=== PATIENT | male | born 1955 | race Caucasian/White ===

== ENCOUNTER → 2023-10-25 14:57 | Outpatient (REF) | payer BC, SELFPAY | LOC: RCS 14:57 | PROVIDERS: ATTENDING PHYSICIAN Internal Medicine Cardiovascular Disease; FAMILY PHYSICIAN Family Medicine | DX: R60.0 Localized edema (principal); R01.1 Cardiac murmur, unspecified; I49.3 Ventricular premature depolarization | CPT/HCPCS: 93306 ==

== ENCOUNTER → 2024-02-08 11:19 | Outpatient (REF) | payer BC, SELFPAY | LOC: HWRAD 11:19 | PROVIDERS: ATTENDING PHYSICIAN Student in an Organized Health Care Education/Training Program | DX: R10.9 Unspecified abdominal pain (principal) | CPT/HCPCS: 74176 ==

== ENCOUNTER 2024-03-11 11:48 | Emergency (ER) | payer BC, SELFPAY ==
[2024-03-11 11:53] VITALS: BP 170/86
--- NOTE | 2024-03-11 12:07 | ED.GENMED ---
ED Provider Triage
<Angie Street PA-C - Last Filed: 03/11/24 19:04>
-
Patient seen by provider in Triage?: Seen in Triage
Attestation: A medical screening examination has been initiated by a qualified medical provider. Based on the assessment performed at this time, it has been determined that an emergent medical condition may exist and the patient has been informed
that further medical evaluation and possible additional diagnostic testing may be needed.
HPI: 68yoM here with L flank pain. Ongoing x 1 month. Worse with driving. States pain is slightly more intense now. Had an outpatient CT 1 month ago which was negative. Had an appt scheduled with urology for tomorrow but cancelled this because he
was coming to the ED. Denies urinary symptoms, fevers, shortness of breath, pleuritic pain, rash.
GENERAL: Alert , in no apparent distress
EYE: No visual abnormalities.
NECK: Trachea midline
ENT: No visible abnormalities.
LUNGS: No acute respiratory distress
NEUROLOGICAL: Alert and oriented
SKIN: Skin intact. No visible changes.
MUSCULOSKELETAL: Moving extremities normally
PSYCH: Normal and appropriate interaction.
This is a medical evaluation conducted in person to initiate diagnostic evaluation and provide initial therapeutics. Please see further documentation by the treating clinician.
Abdominal labs, UA, and repeat CT.
History of Present Illness
<Angie Street PA-C - Last Filed: 03/11/24 19:04>
General
Chief Complaint: Back Pain
Time Seen by Provider: 03/11/24 13:41
<Gabe Stafford PA-C - Last Filed: 03/11/24 14:06>
General
Source: patient
Exam Limitations: none
History of Present Illness
History of Present Illness:
68-year-old male presents with intermittent left back and flank pain over the past month. CT scan was done about a month ago which failed to demonstrate any kidney stones. He denies urinary symptoms. The pain is not made worse with sitting and
driving for prolonged period time. There is no numbness. No bowel or bladder dysfunction. He denies a rash. No fever. No known injury. No other complaints at this time
Past History
<Angie Street PA-C - Last Filed: 03/11/24 19:04>
Past History
ED Past Medical History: NIDDM
Social History
Tobacco: Non-smoker
Living: with family
Phy Exam
<Gabe Stafford PA-C - Last Filed: 03/11/24 14:06>
Physical Exam
Physical Exam:
General: Well-appearing male no acute respiratory distress
HEENT: Normocephalic atraumatic
Heart: Regular rate and rhythm no murmurs
Lungs: Clear no wheeze
Abdomen is soft slightly tender to the left mid abdomen no guarding or rebound normal bowel sounds nondistended
Musculoskeletal exam: Mild reproducible tenderness about the left flank
Skin is warm no rash or lesions
Course
<Angie Street PA-C - Last Filed: 03/11/24 19:04>
Orders/Labs/Results
Orders:
Orders
03/11/24 12:10
CT Abd/pel Without Iv Or Oral Urgent
Comment:
Reason For Exam: L flank pain
03/11/24 12:13
Complete Blood Count/With Diff Urgent
Comprehensive Metabolic Panel Urgent
Lipase Urgent
Urinalysis Reflex To Culture Urgent
Date Specimen was Collected: 03/11/24
Time Specimen was Collected: 11:57
Urine Microscopic Reflex Cult Urgent
Abnormal Lab Results
03/11/24
12:13
WBC 11.0 H 10^3/uL
(4.8-10.8)
RBC 4.45 L 10^6/uL
(4.70-6.10)
Absolute Neuts (auto) 7.7 H 10^3/uL
(1.4-6.5)
Absolute Monos (auto) 0.9 H 10^3/uL
(0.1-0.6)
Lymphocytes % 16.9 L %
(20.5-51.1)
Glucose 226 H mg/dl
(70-99)
Urine Ketones Trace A
(Negative)
Ur Occult Blood Reflex Trace A
(Negative)
Urine RBC 3-6 A /HPF
(0-2)
Urine Bacteria (Reflex) Few A
(Negative)
Urine Glucose 3+ A
(Negative)
03/11/24 12:13
03/11/24 12:13
Vital Signs
Initial and Last Documented VS:
Initial Vital Signs
Temp Pulse Resp BP Pulse Ox
97.9 F 69 17 170/86 99
03/11/24 11:53 03/11/24 11:53 03/11/24 11:53 03/11/24 11:53 03/11/24 11:53
Last Documented Vital Signs
Temp Pulse Resp BP Pulse Ox
97.9 F 69 17 170/86 99
03/11/24 11:53 03/11/24 11:53 03/11/24 11:53 03/11/24 11:53 03/11/24 11:53
Cristinalt;Gabe Stafford PA-C - Last Filed: 03/11/24 14:06>
Orders/Labs/Results
Orders:
Orders
03/11/24 12:10
CT Abd/pel Without Iv Or Oral Urgent
Comment:
Reason For Exam: L flank pain
03/11/24 12:13
Complete Blood Count/With Diff Urgent
Comprehensive Metabolic Panel Urgent
Lipase Urgent
Urinalysis Reflex To Culture Urgent
Date Specimen was Collected: 03/11/24
Time Specimen was Collected: 11:57
Urine Microscopic Reflex Cult Urgent
Abnormal Lab Results
03/11/24
12:13
WBC 11.0 H 10^3/uL
(4.8-10.8)
RBC 4.45 L 10^6/uL
(4.70-6.10)
Absolute Neuts (auto) 7.7 H 10^3/uL
(1.4-6.5)
Absolute Monos (auto) 0.9 H 10^3/uL
(0.1-0.6)
Lymphocytes % 16.9 L %
(20.5-51.1)
Glucose 226 H mg/dl
(70-99)
Urine Ketones Trace A
(Negative)
Ur Occult Blood Reflex Trace A
(Negative)
Urine RBC 3-6 A /HPF
(0-2)
Urine Bacteria (Reflex) Few A
(Negative)
Urine Glucose 3+ A
(Negative)
03/11/24 12:13
03/11/24 12:13
Vital Signs
Initial and Last Documented VS:
Initial Vital Signs
Temp Pulse Resp BP Pulse Ox
97.9 F 69 17 170/86 99
03/11/24 11:53 03/11/24 11:53 03/11/24 11:53 03/11/24 11:53 03/11/24 11:53
Last Documented Vital Signs
Temp Pulse Resp BP Pulse Ox
97.9 F 69 17 170/86 99
03/11/24 11:53 03/11/24 11:53 03/11/24 11:53 03/11/24 11:53 03/11/24 11:53
<Gabe Stafford PA-C - Last Filed: 03/11/24 14:06>
MDM/Problems Addressed
Differential Diagnosis Includes:
Left flank and mid abdominal pain. Consider musculoskeletal flank pain versus renal colic versus diverticulitis. No rash to suggest shingles.
CT scan of the abdomen was performed today which is negative for acute finding but there is some degenerative disease throughout the spine.
Labs reviewed there is mild hematuria. Would recommend he follow-up with urology to evaluate his hematuria however I do not think his pain in his side is related. Recommended continued use of Tylenol and follow-up with his doctors
<Gabe Stafford PA-C - Last Filed: 03/11/24 14:06>
*Critical Care Note
Total Time (30-74mins, 75-104mins- exclusive of procedures): Not Applicable
ED Attending Note
<Angie Street PA-C - Last Filed: 03/11/24 19:04>
-
Portions of this chart may have been created with voice recognition software.� Occasional wrong word or��sound alike� substitutions may have occurred due to the inherent limitations of voice recognition software.
Discharge Plan
Departure
Patient Disposition: Home (Routine Discharge)
Date of Disposition: 03/11/24
Time of Disposition: 14:04
Patient with high blood pressure during this ER visit?: No
Discharge Problem:
Acute flank pain
Instructions: Low Back Pain (DC)
Prescriptions:
No Action
ropinirole 1 MG tablet
1 mg PO HS
ropinirole [Requip XL] 2 MG tablet extended release 24 hr
2 mg PO HS
metformin 500 MG tablet
500 mg PO BID
Referrals:
Bienvenido Ferro MD [Family Provider] -
Activity Restrictions/Additional Instructions:
As discussed, there is a small amount of blood in your urine. This should be followed up with by urologist for further evaluation. Your pain may be related to a musculoskeletal issue. You can continue Tylenol for this. There is some degenerative
changes noted in the spine on the CAT scan.
Interventions
Interventions:
*Risk Screen - Suicide Last Done: 03/11/24 11:55
*General Assessment Last Done: 03/11/24 13:22
*Neglect/Abuse Screening Last Done: 03/11/24 11:55
ED- Fall Risk Assessment Last Done: 03/11/24 14:15
*ED COVID-19 Vaccine History Last Done: 03/11/24 11:55
*Nursing Disposition Last Done: 03/11/24 14:15
ED-Musculoskeletal Assessment Last Done: 03/11/24 13:22
Discharge Date and Time
Discharge Date/Time: 03/11/24 14:20
Print Language: IRISH
[2024-03-11 12:29] LABS: % Basophils 0.7 % (0-2); % Eosinophils 4.1 % (0-6); % Immature Granulocytes 0.4 % (0-0.5); % Lymphocytes 16.9 % (20.5-51.1); % Neutrophils 69.9 % (42.2-75.2); Absolute Basophils 0.1 10^3/uL (0-0.2); Absolute Eosinophils 0.5 10^3/uL (0-0.7); Absolute Lymphocytes 1.9 10^3/uL (1.2-3.4); Absolute Monocytes 0.9 10^3/uL (0.1-0.6); Absolute Neutrophils 7.7 10^3/uL (1.4-6.5); Hematocrit 39.2 % (39.0-52.0); Hemoglobin 13.4 g/dL (13.0-18.0); Mean Corp Hgb Conc. 34.2 g/dL (33.0-37.0); Mean Corpuscular Hgb 30.1 pg (27.0-31.0); Mean Corpuscular Volume 88.1 fL (80.0-94.0); Mean Platelet Volume 9.6 fL (7.4-10.4); Nucleated Red Blood Cells % 0 % (-); Platelet Count 267 10^3/uL (130-400); Red Blood Cell Count 4.45 10^6/uL (4.70-6.10); Red Cell Dist. Width 12.6 % (11.5-14.5)
[2024-03-11 12:33] LABS: Urine Albumin Trace (Neg - Trace); Urine Bilirubin Negative (Negative); Urine Character Clear (Clear); Urine Color Yellow; Urine Glucose 3+ (Negative); Urine Ketone Trace (Negative); Urine Leukocyte Negative (Negative); Urine Nitrite Negative (Negative); Urine Occult Blood Trace (Negative); Urine Urobilinogen Negative (Neg - 1+)
[2024-03-11 12:44] LABS: ALT (SGPT) 22 U/L (0-50); AST (SGOT) 19 U/L (17-59); Albumin 3.9 g/dl (3.5-5.0); Alkaline Phosphatase 104 U/L (38-126); Blood Urea Nitrogen 17 mg/dl (9-20); Calcium 9.2 mg/dl (8.4-10.2); Carbon Dioxide 27 mmol/L (22-30); Chloride 99 mmol/L (98-107); Glucose 226 mg/dl (70-99); Lipase 62 U/L (23-300); Potassium 4.5 mmol/L (3.5-5.1); Sodium 135 mmol/L (135-145); Total Bilirubin 0.5 mg/dl (0.2-1.3); Total Protein 6.6 g/dl (6.3-8.2); eGFR > 60.00
[2024-03-11 13:01] LABS: Urine Mucus Moderate; Urine Squamous Cell 0-2 /LPF (Few)
[2024-03-11 13:02] LABS: Urine Bacteria Few (Negative); Urine Uric Acid Crystals Present; Urine White Cell 0-2 /HPF (0-5)
== END 2024-03-11 14:20 | disposition home or self-care (01) ==
LOC: EMR 11:48
PROVIDERS: Emergency Medicine; Physician Assistant; EMERGENCY PHYSICIAN Emergency Medicine; FAMILY PHYSICIAN Family Medicine
DX: R10.9 Unspecified abdominal pain (principal); M54.50 Low back pain, unspecified; R31.9 Hematuria, unspecified; E11.9 Type 2 diabetes mellitus without complications
CPT/HCPCS: 99284; 74176; 80053; 81003; 81015; 83690; 85025

== ENCOUNTER → 2024-05-08 12:50 | Outpatient (REF) | payer BC, SELFPAY | LOC: RAD 12:50 | PROVIDERS: ATTENDING PHYSICIAN Family Medicine | DX: R22.1 Localized swelling, mass and lump, neck (principal) | CPT/HCPCS: 76536 ==

== ENCOUNTER → 2024-05-12 13:32 | Outpatient (REF) | payer BC, SELFPAY | LOC: RAD 13:32 | PROVIDERS: ATTENDING PHYSICIAN Family Medicine | DX: R22.1 Localized swelling, mass and lump, neck (principal) | CPT/HCPCS: 70492; Q9967 ==

== ENCOUNTER → 2024-06-25 12:52 | Outpatient (REF) | payer BC, SELFPAY | LOC: HWRAD 12:52 | PROVIDERS: ATTENDING PHYSICIAN Internal Medicine Hematology & Oncology; FAMILY PHYSICIAN Family Medicine | DX: C83.31 Diffuse large B-cell lymphoma, lymph nodes of head, face, and neck (principal) | CPT/HCPCS: 76770 ==

== ENCOUNTER 2024-06-26 06:14 | Day surgery (SDC) | payer BC, SELFPAY ==
[2024-06-04 08:50] LABS: Hematocrit 42.4 % (39.0-52.0); Hemoglobin 14.2 g/dL (13.0-18.0); Mean Corp Hgb Conc. 33.5 g/dL (33.0-37.0); Mean Corpuscular Volume 86.5 fL (80.0-94.0); Mean Platelet Volume 9.8 fL (7.4-10.4); Platelet Count 360 10^3/uL (130-400); White Blood Cell Count 10.9 10^3/uL (4.8-10.8)
[2024-06-04 12:00] LABS: ALT (SGPT) 31 U/L (0-50); AST (SGOT) 31 U/L (17-59); Albumin 3.7 g/dl (3.5-5.0); Alkaline Phosphatase 149 U/L (38-126); Blood Urea Nitrogen 10 mg/dl (9-20); Calcium 9.4 mg/dl (8.4-10.2); Carbon Dioxide 30 mmol/L (22-30); Chloride 101 mmol/L (98-107); Glucose 194 mg/dl (70-99); Potassium 5.1 mmol/L (3.5-5.1); Sodium 138 mmol/L (135-145); Total Bilirubin 0.7 mg/dl (0.2-1.3); Total Protein 6.9 g/dl (6.3-8.2); eGFR > 60.00
[2024-06-04 13:54] VITALS: BMI 31.6
[2024-06-26] VITALS (10 sets, daily range): BP systolic 117–150; BP diastolic 69–80; BMI 31.6; BMI 34.7
[2024-06-26 08:06] LABS: Glucose - Point of Care 123 mg/dl (70-99)
[2024-06-26] MEDS: NORMOSOL-R/PLASMALYTE-A 1000 IV (08:07)
[2024-06-26 10:19] LABS: Glucose - Point of Care 118 mg/dl (70-99)
[2024-06-26 11:09] LABS: Glucose - Point of Care 134 mg/dl (70-99)
== END 2024-06-26 12:28 | disposition home or self-care (01) ==
LOC: SDS 06:14
PROVIDERS: ATTENDING PHYSICIAN Otolaryngology; FAMILY PHYSICIAN Family Medicine
DX: C83.31 Diffuse large B-cell lymphoma, lymph nodes of head, face, and neck (principal); R59.0 Localized enlarged lymph nodes
CPT/HCPCS: 38510; 88305; 36415; 80053; 82962; 85027; 87070; 87075; 87205; 88184; 88185; 88333; 88341; 88342; 93005

== ENCOUNTER → 2024-07-29 10:24 | Outpatient (REF) | payer MEDICARE, OTHER, SELFPAY | LOC: RCS 10:24 | PROVIDERS: ATTENDING PHYSICIAN Internal Medicine Hematology & Oncology | DX: C83.31 Diffuse large B-cell lymphoma, lymph nodes of head, face, and neck (principal) | CPT/HCPCS: 93306; 93356 ==

== ENCOUNTER 2024-08-07 06:38 | Emergency (ER) | payer MEDICARE, OTHER, SELFPAY ==
[2024-08-07] VITALS (7 sets, daily range): BP systolic 118–142; BP diastolic 79–85; BMI 33.9
--- NOTE | 2024-08-07 07:09 | ED.GENMED ---
History of Present Illness
General
Chief Complaint: Chest Pain
Source: patient
Exam Limitations: none
Time Seen by Provider: 08/07/24 06:54
History of Present Illness
History of Present Illness:
68-year-old male with history of insulin-dependent diabetes, non-Hodgkin's lymphoma presents with the onset of chest discomfort at 545 this morning. He stood up to get ready to leave the house when he developed a grabbing type of pain in the center
of his chest. This was short lasting went away. He had another episode and decided to come here for evaluation. He denies any pleuritic component. There is no back pain. No associated diaphoresis or nausea. No leg swelling or calf pain. He is
not anticoagulated however he is on a baby aspirin. He received his first chemotherapy treatment about 8 days ago. He denies shortness of breath. The pain is intermittent. At the time my exam he had no pain
Past History
Past History
ED Past Medical History: NIDDM
Social History
Tobacco: Non-smoker
Living: with family
Phy Exam
Physical Exam
Physical Exam:
General: Well-appearing male no acute respiratory distress
HEENT: Normocephalic atraumatic
Heart: Regular rate and rhythm
Lungs: Clear no wheeze
Abdomen is soft nontender
Extremities: No cyanosis or edema
Skin warm no rash
Scores
Heart Score for Chest Pain Patients
STEMI patient?: No
History: Slightly or Non-Suspicious
ECG: Normal
Age: >/= 65 years
Risk Factors: 1 or 2 Risk Factors
Troponin: </= Normal Limit
Heart Score for Chest Pain Patients: 3
Heart Score Risk: 2.5% MACE over next 6 weeks
Course
Orders/Labs/Results
Orders:
Orders
08/07/24
Electrocardiogram (*1) Stat
Comment: DONE
08/07/24 06:39
EKG [Electrocardiogram (*1)] Urgent
Reason for Study: Chest Pain
EKG- Treatment ONCE
08/07/24 07:09
CR Chest - 2 Views Urgent
Comment:
Reason For Exam: chest pain
08/07/24 07:14
Complete Blood Count/With Diff Urgent
Comprehensive Metabolic Panel Urgent
Manual Differential Urgent
Troponin I Urgent
08/07/24 09:18
Electrocardiogram (*1) Urgent
Reason for Study: Chest Pain
EKG- Treatment ONCE
08/07/24 09:44
Troponin I Urgent
08/07/24 10:52
Acetaminophen [Tylenol] 1,000 mg PO NOW STA
Abnormal Lab Results
08/07/24
07:14
WBC 3.4 L 10^3/uL
(4.8-10.8)
RBC 4.52 L 10^6/uL
(4.70-6.10)
Hgb 12.8 L g/dL
(13.0-18.0)
Hct 37.8 L %
(39.0-52.0)
Plt Count 106 L 10^3/uL
(130-400)
MPV 10.7 H fL
(7.4-10.4)
Abs Neuts (Manual) 0.7 L* 10^3/uL
(1.4-6.5)
Segmented Neutrophils 17 L %
(42-75)
Band Neutrophils 5 H %
(0-3)
Lymphocytes (Manual) 57 H %
(20-51)
Monocytes (Manual) 10 H %
(2-9)
Glucose 223 H mg/dl
(70-99)
AST 13 L U/L
(17-59)
Total Protein 5.8 L g/dl
(6.3-8.2)
Albumin 3.3 L g/dl
(3.5-5.0)
08/07/24 07:14
08/07/24 07:14
Vital Signs
Initial and Last Documented VS:
Initial Vital Signs
Temp Pulse Resp BP Pulse Ox
97.9 F 86 18 133/83 95
08/07/24 06:46 08/07/24 06:46 08/07/24 06:46 08/07/24 06:46 08/07/24 06:46
Last Documented Vital Signs
Temp Pulse Resp BP Pulse Ox
97.9 F 76 14 133/83 99
08/07/24 06:46 08/07/24 11:06 08/07/24 10:45 08/07/24 11:06 08/07/24 11:06
MDM/Problems Addressed
Differential Diagnosis Includes:
Atypical chest pain. Differential could include palpitations versus ACS. Less likely to be PE or dissection given lack of discomfort at time my exam. Vital signs are stable. He does have a port in the upper chest that was recently accessed.
Lungs are clear but will order x-ray to evaluate for pneumothorax or pleural effusion. Labs pending. I reviewed EKG which demonstrates normal sinus rhythm without ischemic changes.
*Critical Care Note
Total Time (30-74mins, 75-104mins- exclusive of procedures): Not Applicable
Update Note
Update Note:
Initial and repeat troponins both undetectable. Patient pain-free upon reassessment. Workup here negative. May be related to recent chemotherapy or adjunct of medications given during chemotherapy. Stable for discharge.
ED Attending Note
-
Portions of this chart may have been created with voice recognition software.� Occasional wrong word or��sound alike� substitutions may have occurred due to the inherent limitations of voice recognition software.
Discharge Plan
Departure
Patient Disposition: Home (Routine Discharge)
Date of Disposition: 08/07/24
Time of Disposition: 12:32
Patient with high blood pressure during this ER visit?: No
Discharge Problem:
Chest pain
Instructions: Chest Pain PCP Follow Up
Prescriptions:
No Action
ropinirole 1 MG tablet
3 mg PO HS
metformin 500 MG tablet
500 mg PO BID
insulin glargine [Lantus U-100 Insulin] 100 unit/mL Solution
20 unit SC HS
acetaminophen [Tylenol Extra Strength] 500 mg Tablet
1,000 mg PO Q6H PRN (Reason: pain)
aspirin 81 mg Tablet,Chewable
81 mg PO DAILY
rosuvastatin 40 mg Tablet
40 mg PO DAILY
ropinirole 6 mg Tablet Extended Release 24 Hr
6 mg PO HS
Mounjaro 10 mg/0.5 mL Pen Injector
10 mg SC QWEEK
Rx Instructions:
Takes on Sunday
Vitamin D3
1 dose PO DAILY
Referrals:
Bienvenido Ferro MD [Family Provider, Family Practice]
Activity Restrictions/Additional Instructions:
Please return here for worsening symptoms otherwise follow-up with your treating doctors
Interventions
Interventions:
*Risk Screen - Suicide Last Done: 08/07/24 06:46
*General Assessment Last Done: 08/07/24 06:46
*Neglect/Abuse Screening Last Done: 08/07/24 06:46
*ED- Fall Risk Assessment Last Done: 08/07/24 07:15
*ED COVID-19 Vaccine History Last Done: 08/07/24 06:50
ED- Cardiac Assessment Last Done: 08/07/24 07:15
Discharge Date and Time
Print Language: PRYDEINIG
[2024-08-07 07:33] LABS: Hematocrit 37.8 % (39.0-52.0); Hemoglobin 12.8 g/dL (13.0-18.0); Mean Corp Hgb Conc. 33.9 g/dL (33.0-37.0); Mean Corpuscular Hgb 28.3 pg (27.0-31.0); Mean Corpuscular Volume 83.6 fL (80.0-94.0); Mean Platelet Volume 10.7 fL (7.4-10.4); Platelet Count 106 10^3/uL (130-400); Red Blood Cell Count 4.52 10^6/uL (4.70-6.10); Red Cell Dist. Width 12.9 % (11.5-14.5); White Blood Cell Count 3.4 10^3/uL (4.8-10.8)
[2024-08-07 07:47] LABS: ALT (SGPT) 19 U/L (0-50); AST (SGOT) 13 U/L (17-59); Albumin 3.3 g/dl (3.5-5.0); Alkaline Phosphatase 117 U/L (38-126); Blood Urea Nitrogen 11 mg/dl (9-20); Carbon Dioxide 29 mmol/L (22-30); Chloride 103 mmol/L (98-107); Estimated Creatinine Clearance > 125 ml/min; Glucose 223 mg/dl (70-99); Potassium 3.5 mmol/L (3.5-5.1); Sodium 135 mmol/L (135-145); Total Bilirubin 0.8 mg/dl (0.2-1.3); Total Protein 5.8 g/dl (6.3-8.2); eGFR > 60.00
[2024-08-07 07:51] LABS: Troponin I < 0.012 ng/ml
[2024-08-07 08:36] LABS: Band Neutrophils 5 % (0-3); Segmented Neutrophils 17 % (42-75)
[2024-08-07 08:37] LABS: Atypical Lymphocytes 3 %; Eosinophils 5 % (0-6); Lymphocytes 57 % (20-51); Monocytes 10 % (2-9); Myelocytes 3 % (-); Normal RBC Morphology Yes; Platelets Checked Yes; Total Cells Counted 100
[2024-08-07 08:38] LABS: Absolute Neutrophils -Man Diff 0.7 10^3/uL (1.4-6.5)
[2024-08-07 10:16] LABS: Troponin I < 0.012 ng/ml
[2024-08-07] MEDS: TYLENOL 1000 MG PO (11:04)
--- NOTE | 2024-08-07 12:30 | EDRN ---
Brianda Stafford PA in to see pt at this time
== END 2024-08-07 12:50 | disposition home or self-care (01) ==
LOC: EMR 06:38
PROVIDERS: Physician Assistant; EMERGENCY PHYSICIAN Emergency Medicine; FAMILY PHYSICIAN Family Medicine
DX: R07.89 Other chest pain (principal); Z85.72 Personal history of non-Hodgkin lymphomas; E11.9 Type 2 diabetes mellitus without complications
CPT/HCPCS: 99285; 71046; 80053; 84484; 85025; 93005

== ENCOUNTER → 2024-08-18 09:35 | Outpatient (REF) | payer MEDICARE, OTHER, SELFPAY ==
[2024-08-18 12:57] LABS: % Basophils 1.4 % (0-2); % Eosinophils 0.3 % (0-6); % Immature Granulocytes 2.5 % (0-0.5); % Lymphocytes 10.9 % (20.5-51.1); % Monocytes 5.5 % (1.7-9.3); % Neutrophils 79.4 % (42.2-75.2); Absolute Basophils 0.2 10^3/uL (0-0.2); Absolute Immature Granulocytes 0.4 10^3/uL (0-0.05); Absolute Lymphocytes 1.5 10^3/uL (1.2-3.4); Absolute Monocytes 0.8 10^3/uL (0.1-0.6); Hematocrit 38.7 % (39.0-52.0); Hemoglobin 13.1 g/dL (13.0-18.0); Mean Corp Hgb Conc. 33.9 g/dL (33.0-37.0); Mean Corpuscular Volume 85.8 fL (80.0-94.0); Mean Platelet Volume 10.6 fL (7.4-10.4); Nucleated Red Blood Cells % 0 % (-); Platelet Count 336 10^3/uL (130-400); Red Blood Cell Count 4.51 10^6/uL (4.70-6.10); Red Cell Dist. Width 13.9 % (11.5-14.5); White Blood Cell Count 13.9 10^3/uL (4.8-10.8)
== END ==
LOC: OIDL 09:35
PROVIDERS: ATTENDING PHYSICIAN Internal Medicine Hematology & Oncology
DX: C83.31 Diffuse large B-cell lymphoma, lymph nodes of head, face, and neck (principal)
CPT/HCPCS: 85025

== ENCOUNTER → 2024-08-19 10:38 | Outpatient (REF) | payer MEDICARE, OTHER, SELFPAY ==
[2024-08-19 12:45] LABS: ALT (SGPT) 18 U/L (0-50); AST (SGOT) 17 U/L (17-59); Albumin 3.9 g/dl (3.5-5.0); Alkaline Phosphatase 213 U/L (38-126); Blood Urea Nitrogen 11 mg/dl (9-20); Calcium 9.5 mg/dl (8.4-10.2); Carbon Dioxide 26 mmol/L (22-30); Chloride 100 mmol/L (98-107); Glucose 519 mg/dl (70-99); Potassium 4.8 mmol/L (3.5-5.1); Sodium 132 mmol/L (135-145); Total Bilirubin 0.5 mg/dl (0.2-1.3); Total Protein 6.6 g/dl (6.3-8.2); eGFR > 60.00
== END ==
LOC: OIDL 10:38
PROVIDERS: ATTENDING PHYSICIAN Internal Medicine Hematology & Oncology; FAMILY PHYSICIAN Family Medicine
DX: C83.31 Diffuse large B-cell lymphoma, lymph nodes of head, face, and neck (principal)
CPT/HCPCS: 36415; 80053

== ENCOUNTER → 2024-09-08 09:21 | Outpatient (REF) | payer MEDICARE, OTHER, SELFPAY ==
[2024-09-08 09:37] LABS: Hematocrit 35.3 % (39.0-52.0); Hemoglobin 12.4 g/dL (13.0-18.0); Mean Corp Hgb Conc. 35.1 g/dL (33.0-37.0); Mean Corpuscular Volume 86.3 fL (80.0-94.0); Platelet Count 246 10^3/uL (130-400); Red Cell Dist. Width 15.3 % (11.5-14.5)
[2024-09-08 11:37] LABS: ALT (SGPT) 18 U/L (0-50); Albumin 3.8 g/dl (3.5-5.0); Alkaline Phosphatase 125 U/L (38-126); Blood Urea Nitrogen 11 mg/dl (9-20); Calcium 9.6 mg/dl (8.4-10.2); Carbon Dioxide 26 mmol/L (22-30); Chloride 106 mmol/L (98-107); Potassium 4.8 mmol/L (3.5-5.1); Sodium 136 mmol/L (135-145); Total Protein 6.3 g/dl (6.3-8.2); eGFR > 60.00
[2024-09-08 11:46] LABS: AST (SGOT) 15 U/L (17-59); Glucose 310 mg/dl (70-99)
== END ==
LOC: OIDL 09:21
PROVIDERS: ATTENDING PHYSICIAN Internal Medicine Hematology & Oncology; FAMILY PHYSICIAN Family Medicine
DX: C83.31 Diffuse large B-cell lymphoma, lymph nodes of head, face, and neck (principal)
CPT/HCPCS: 36415; 80053; 85025

== ENCOUNTER 2024-12-08 22:30 | Emergency (ER) | payer MEDICARE, OTHER, SELFPAY ==
[2024-12-08 22:31] VITALS: BP 143/87
--- NOTE | 2024-12-09 00:56 | ED.GENMED ---
ED Provider Triage
<Uli Irby MD, Resident - Last Filed: 12/09/24 02:27>
-
Patient seen by provider in Triage?: Seen in Triage
History of Present Illness
<Uli Irby MD, Resident - Last Filed: 12/09/24 02:27>
General
Chief Complaint: Back Pain
Source: patient
Exam Limitations: none
Time Seen by Provider: 12/09/24 00:40
History of Present Illness
History of Present Illness:
Patient is a 69-year-old male who presents with dull in character, moderate to severe in intensity, gradual lower back left buttocks pain that started over the weekend, does not remember what he was doing during onset of pain. He said the pain
feels similar to when he had spinal stenosis from [id number]. Does not radiate. No numbness, tingling, weakness, foot drop, urinary retention, incontinence, fever, night sweats, chills. No prior IV drug usage. This year from May to November he
had a lymphoma.
Past History
<Uli Irby MD, Resident - Last Filed: 12/09/24 02:27>
Past History
ED Past Medical History: NIDDM
Social History
Tobacco: Non-smoker
Living: with family
Phy Exam
<Uli Irby MD, Resident - Last Filed: 12/09/24 02:27>
General Physical Exam
General Presentation: well appearing and moderate distress
General Skin: warm
General Habitus: normal
General Mental: alert
Cardiovascular Exam
Cardiovascular Exam: regular rate/rhythm and no edema
Pulmonary Exam
Pulmonary Exam: lungs clear and no respiratory distress
Gastrointestinal Exam
Gastrointestinal Exam: normal bowel sounds, non tender, soft and non distended
Neurological Exam
Neurological Exam: alert and oriented x3
Musculoskeletal Exam
Musculoskeletal Exam: other (No rashes or visible deformity, tenderness to palpation of the left gluteal region, no reproduction of pain on movement of affected extremity, decreased ROM on flexion left, so spinal tenderness extremity, )
Skin Exam
Skin Exam: normal color, warm/dry and no rash
Course
<Uli Irby MD, Resident - Last Filed: 12/09/24 02:27>
Orders/Labs/Results
Orders:
Orders
12/09/24 01:04
Ketorolac [Toradol] 15 mg IM NOW STA
12/09/24 01:14
CR Hip - LT w/wo Pel 2-3 Vw* Urgent
Comment:
Reason For Exam: left hip tenderness
Include a pelvis x-ray?: Yes
12/09/24 01:15
Ketorolac [Toradol] 60 mg IM NOW STA
12/09/24 02:19
Prednisone [Deltasone] 50 mg PO NOW STA
12/09/24 02:37
Lidocaine [Lidocaine 4% Patch] 1 patch TOPICAL NOW STA
Apply Lidocaine patch(s) to:: left buttock
12/09/24 02:37
Lidocaine [Lidocaine 4% Patch] 1 patch TOPICAL NOW STA
Apply Lidocaine patch(s) to:: left posterolat hip
Vital Signs
Initial and Last Documented VS:
Initial Vital Signs
Temp Pulse Resp BP Pulse Ox
98.1 F 69 20 143/87 98
12/08/24 22:31 12/08/24 22:31 12/08/24 22:31 12/08/24 22:31 12/08/24 22:31
Last Documented Vital Signs
Temp Pulse Resp BP Pulse Ox
98.1 F 66 18 154/85 98
12/08/24 22:31 12/09/24 01:42 12/09/24 01:42 12/09/24 01:42 12/09/24 01:42
<Yesica Riddle, DO - Last Filed: 12/09/24 02:40>
Orders/Labs/Results
Orders:
Orders
12/09/24 01:04
Ketorolac [Toradol] 15 mg IM NOW STA
12/09/24 01:14
CR Hip - LT w/wo Pel 2-3 Vw* Urgent
Comment:
Reason For Exam: left hip tenderness
Include a pelvis x-ray?: Yes
12/09/24 01:15
Ketorolac [Toradol] 60 mg IM NOW STA
12/09/24 02:19
Prednisone [Deltasone] 50 mg PO NOW STA
12/09/24 02:37
Lidocaine [Lidocaine 4% Patch] 1 patch TOPICAL NOW STA
Apply Lidocaine patch(s) to:: left buttock
12/09/24 02:37
Lidocaine [Lidocaine 4% Patch] 1 patch TOPICAL NOW STA
Apply Lidocaine patch(s) to:: left posterolat hip
Vital Signs
Initial and Last Documented VS:
Initial Vital Signs
Temp Pulse Resp BP Pulse Ox
98.1 F 69 20 143/87 98
12/08/24 22:31 12/08/24 22:31 12/08/24 22:31 12/08/24 22:31 12/08/24 22:31
Last Documented Vital Signs
Temp Pulse Resp BP Pulse Ox
98.1 F 66 18 154/85 98
12/08/24 22:31 12/09/24 01:42 12/09/24 01:42 12/09/24 01:42 12/09/24 01:42
<Uli Irby MD, Resident - Last Filed: 12/09/24 02:27>
MDM/Problems Addressed
Differential Diagnosis Includes:
piriformis syndrome, lumbar/sacral radiculopathy, gluteal strain, shingles
MDM/Problems Addressed:
- Toradol administered for pain
- Xray of the left hip with pelvis normal
- Discharge patient home on prednisone taper, and then follow up with orthopedics within 5 days
<Uli Irby MD, Resident - Last Filed: 12/09/24 02:27>
*Pulse Oximetry
SaO2: 98
Oxygen Mode of Delivery: Room air
Patient hypoxic: no
*Critical Care Note
Total Time (30-74mins, 75-104mins- exclusive of procedures): Not Applicable
<Yesica Riddle, DO - Last Filed: 12/09/24 02:40>
*Radiology
Radiology exam reviewed: preliminary read by ED provider (Left hip, pelvis x-ray unremarkable.)
ED Attending Note
<Uli Irby MD, Resident - Last Filed: 12/09/24 02:27>
-
Portions of this chart may have been created with voice recognition software.� Occasional wrong word or��sound alike� substitutions may have occurred due to the inherent limitations of voice recognition software.
<Yesica Riddle, - Last Filed: 12/09/24 02:40>
ED Attending Note
Patient seen and examined by attending physician: Yes
I performed a history and physical exam of patient and discussed management with resident, I reviewed resident's note and agree with documented findings and plan of care.: Yes
ED Attending Note:
69-year-old gentleman with history of insulin requiring diabetes, non-Hodgkin's lymphoma. He has recently completed chemotherapy and radiation last month. He also has remote history of lumbar stenosis status post lower lumbar surgery 9 years ago.
He presents with left low back/left posterior lateral hip pain that began mildly 2 days ago, progressing over the past 2 days. No insightful injury. He has been doing a fair amount of driving. Pain does not radiate down his leg, no weakness or
numbness, no saddle anesthesia, no difficulty moving his bowels or bladder. He has not had fever and or chills. He has not noticed a rash.
He states his blood sugars are generally fairly well-controlled. They had been elevated while on prednisone accompanied with chemo.
He has been taking ibuprofen for pain which was initially quite helpful until this evening. Took a dose of Tylenol without relief.
69-year-old gentleman appears his stated age, preferentially lying prone on the stretcher, easily moves about and repositions without difficulty. Afebrile. No alarming vital signs.
HEENT: Oral mucosa is moist.
Neck is supple, nontender.
No respiratory distress
Abdomen is soft without appreciable tenderness.
Back: No midline bony tenderness. No paravertebral muscle tenderness nor palpable muscle spasm.
Extremities: No clubbing or cyanosis or edema. Peripheral pulses are full and equal. There is moderate tenderness left posterolateral hip. There is no erythema nor rash nor soft tissue swelling nor palpable masses. Full hip range of motion
without difficulty nor pain. Sensation and strength intact.
Concern for left hip bursitis, other consideration is prodromal pain associated with herpes zoster, piriformis muscle strain, DJD of left hip, metastatic bony disease, infectious process is also a consideration but less likely.
Will give an IM dose of Toradol and will check x-ray left hip/pelvis.
Overall patient appears comfortable. Moves about with ease. He is afebrile and has had no recent fever, no recent instrumentation. History of non-Hodgkin's lymphoma, currently in remission as of last month. Diabetes reportedly fairly
well-controlled.
At this point no indication for laboratory studies.
02:40
Left hip x-ray/pelvis overall unremarkable.
Patient reports no significant relief of pain after IM dose of Toradol. In fact perhaps worse after my exam with worsened pain with local palpation of his posterior lateral hip. He continues to have full range of motion of hip without difficulty.
Pain is elicited with palpation of posterior lateral hip, suspicious of greater trochanteric bursitis. He continues to have no rash, no redness, no fever. No radicular signs or symptoms. No back pain.
Recommend a course of oral steroids for bursitis and will trial lidocaine patch.
I have offered a short course of a narcotic which he declines as he plans to continue to work, he drives for living.
Encouraged prompt follow-up with PCP and patient will be referred to orthopedics as well.
Return precautions discussed.
Discharge Plan
Departure
Patient Disposition: Home (Routine Discharge)
Date of Disposition: 12/09/24
Time of Disposition: 02:20
Patient with high blood pressure during this ER visit?: Yes
Condition: Fair
Discharge Problem:
Bursitis of hip
Instructions: Hip pain - ED (DC)
Prescriptions:
New
prednisone 10 mg Tablet
See Rx Instructions .ROUTE .COMPLEX Qty: 30 0RF
Rx Instructions:
Take By Mouth:
40 mg daily x3 days, 30 mg daily x3 days,
20 mg daily x3 days, 10 mg daily x3 days.
No Action
ropinirole 1 MG tablet
3 mg PO HS
metformin 500 MG tablet
500 mg PO BID
insulin glargine [Lantus U-100 Insulin] 100 unit/mL Solution
20 unit SC HS
acetaminophen [Tylenol Extra Strength] 500 mg Tablet
1,000 mg PO Q6H PRN (Reason: pain)
aspirin 81 mg Tablet,Chewable
81 mg PO DAILY
rosuvastatin 40 mg Tablet
40 mg PO DAILY
ropinirole 6 mg Tablet Extended Release 24 Hr
6 mg PO HS
Mounjaro 10 mg/0.5 mL Pen Injector
10 mg SC QWEEK
Rx Instructions:
Takes on Sunday
Vitamin D3
1 dose PO DAILY
Referrals:
Zev Longo MD [Active, Orthopedics] - Follow up in 5-7 days
Bienvenido Ferro MD [Family Provider, Family Practice]
Activity Restrictions/Additional Instructions:
Was seen for pain in his left hip/ gluteal region. Xray of left hip normal. Will discharge with prednisone taper. Follow up with orthopedic doctor within 5 days.
Thank you for visiting the Emergency Department at [facility].
1. Please schedule a follow up appointment as directed. Call first thing tomorrow morning to make an appointment.
2. If indicated, please take your medications as instructed and indicated on discharge paperwork.
3. If any of your symptoms do not improve, or persist, or become more severe within 6-12 hours, please return to the emergency department for further care.
4. Please return to the emergency department if you develop a headache, neck pain/stiffness, fever greater than 100.4F, chest pain, shortness of breath, persistent nausea, vomiting, slurred speech, difficulty walking, numbness/tingling, weakness,
signs of infection or any other symptoms that are worrisome to you.
Please call [phone] if you have any questions.
Interventions
Interventions:
*General Assessment Last Done: 12/08/24 22:31
ED-Musculoskeletal Assessment Last Done: 12/09/24 00:45
Discharge Date and Time
Print Language: BURMESE
[2024-12-09] MEDS: TORADOL 60 MG IM (01:27)
[2024-12-09 01:42] VITALS: BP 154/85
[2024-12-09] MEDS: DELTASONE 50 MG PO (02:33)
[2024-12-09] MEDS: LIDOCAINE 4% PATCH 1 PATCH TOPICAL (02:38)
== END 2024-12-09 02:48 | disposition home or self-care (01) ==
LOC: EMR 22:30
PROVIDERS: EMERGENCY PHYSICIAN Emergency Medicine; FAMILY PHYSICIAN Family Medicine
DX: M70.72 Other bursitis of hip, left hip (principal); E11.9 Type 2 diabetes mellitus without complications; C85.9A Non-Hodgkin lymphoma, unspecified, in remission; Z92.21 Personal history of antineoplastic chemotherapy; Z92.3 Personal history of irradiation
CPT/HCPCS: 96372; 99284; 73502